=== PATIENT | male | born 1995 ===

== ENCOUNTER 2016-11-27 14:48 | Day surgery (SDC) | payer SELFPAY ==
[~2016-11-27 14:48] MED LIST: Buffered Lidocaine 0.9% SYRIN* 5 ML/SYR SYRINGE INTRADERM ONE; Buffered Lidocaine 0.9% SYRIN* 5 ML/SYR SYRINGE ONE; Famotidine IV* 10 MG/ML 2 ML (20 mg) IV ONE; Famotidine IV* 10 MG/ML 2 ML (20 mg) ONE; Morphine INJ* 2 MG/ML 1 ML SYRINGE IV PRN; PROCHLORPERAZINE INJ 5 MG/ML 2 ML VIAL IV PRN; ceFAZolin 2 GM PREMIX(*) 2 GM/50 ML BAG IVPB ONE; fentaNYL* 50 MCG/ML 2 ML VIAL (100 MCG VIAL) IV PRN; oxyCODONE/Acetamin 5/325 MG* TAB PO PRN
[2016-11-27] MEDS ORDERED: fentaNYL* 50 MCG/ML 2 ML VIAL (100 MCG VIAL) ONE (15:17)
[2016-11-27] MEDS ORDERED: Midazolam* 1 MG/ML 2 ML VIAL (2 MG) ONE (15:17)
[2016-11-27] MEDS ORDERED: KETAMINE HCL* 50 MG/ML 10 ML VIAL ONE (15:17)
[2016-11-27] MEDS ORDERED: Oxymetazoline 0.05% NASAL SPR* 15 ML BTL ONE (15:27)
[2016-11-27] MEDS ORDERED: Lidocain 1% EPI 1:100,000 * 30 ML MDV ONE (15:27)
[2016-11-27] MEDS ORDERED: Dexamethasone IV* 4 MG/ML 1 ML (4 MG) ONE (15:38)
[2016-11-27] MEDS ORDERED: Ondansetron INJ* 2 MG/ML VIAL ONE (15:38)
[2016-11-27] MEDS ORDERED: Lidocaine 2% PF * 5 ML VIAL ONE (15:38)
[2016-11-27] MEDS ORDERED: Propofol* 10 MG/ML 20 ML BTL IV PUSH ONE (15:38)
[2016-11-27] MEDS ORDERED: Bacitracin OINTMENT* 1 TUBE ONE (15:50)
[2016-11-27 16:54] VITALS: BP 118/68
== END 2016-11-27 16:55 | disposition home or self-care (01) ==
LOC: OREAST 14:48
PROVIDERS: ATTEND Plastic Surgery
DX: S02.2XXA Fracture of nasal bones, initial encounter for closed fracture (principal); V49.88XA Car occupant (driver) (passenger) injured in other specified transport accidents, initial encounter; W22.11XA Striking against or struck by driver side automobile airbag, initial encounter; Y92.410 Unspecified street and highway as the place of occurrence of the external cause
CPT/HCPCS: A9270-GY; J0690; J1100; J2250; J2405; J2704; J3010